=== PATIENT | female | born 1980 | race Caucasian/White ===

== ENCOUNTER 2025-07-09 16:27 | Emergency (ER) | payer MEDICAID, OTHER ==
[2025-07-09] MEDS ORDERED: diphenhydrAMINE 25 MG CAP ONE (16:59)
[2025-07-09] MEDS ORDERED: Prochlorperazine 10 MG/2 ML VIAL ONE (17:01)
== END 2025-07-09 18:49 | disposition home or self-care (01) ==
LOC: CSHERS 16:27
DX: S09.90XA Unspecified injury of head, initial encounter (principal); S00.83XA Contusion of other part of head, initial encounter; F17.210 Nicotine dependence, cigarettes, uncomplicated; W18.30XA Fall on same level, unspecified, initial encounter
CPT/HCPCS: 70450; 70486; 72125; 93005; 96372; J0780